=== PATIENT | male | born 1965 | race Caucasian/White ===

== ENCOUNTER 2018-10-04 20:09 | Emergency (ER) | payer MEDICAID ==
[~2018-10-04] VITALS: Ht 180.3 cm; Wt 80.9 kg
[~2018-10-04 20:09] MED LIST: AMLODIPINE; LISINOPRIL; SIMVASTATIN; VICODIN
[2018-10-04 20:27] VITALS: BP 168/95
[2018-10-04] MEDS ORDERED: KETOROLAC TROMETHAMINE 15 MG/ML VIAL ONE (20:50)
[2018-10-04] MEDS ORDERED: DIAZEPAM 5 MG TABLET ONE (20:51)
[2018-10-04] MEDS ORDERED: KETOROLAC TROMETHAMINE INJ 30 MG/ML VIAL IM ONE (21:00)
[2018-10-04] MEDS ORDERED: DIAZEPAM 10 MG TABLET PO ONE (21:00)
== END 2018-10-04 20:59 | disposition home or self-care (01) ==
LOC: ER 20:12
DX: M25.511 Pain in right shoulder (principal); M79.662 Pain in left lower leg; G89.29 Other chronic pain; F17.200 Nicotine dependence, unspecified, uncomplicated; Z79.899 Other long term (current) drug therapy; W18.39XA Other fall on same level, initial encounter; Y93.01 Activity, walking, marching and hiking; Y92.89 Other specified places as the place of occurrence of the external cause; Y99.8 Other external cause status
CPT/HCPCS: 96372; 99283; J1885

== ENCOUNTER 2020-10-05 13:34 | Emergency (ER) | payer MEDICAID ==
[~2020-10-05] VITALS: Ht 180.3 cm; Wt 89.8 kg
[2020-10-05 13:51] VITALS: BP 186/103
[2020-10-05] MEDS ORDERED: LIDOCAINE 1%-EPI 1:100,000 20 ML VIAL ONE (14:15)
[2020-10-05] MEDS ORDERED: NAPR-1164 PO (15:41)
[2020-10-05] MEDS ORDERED: CEPH500C2 PO (15:41)
[2020-10-05] MEDS ORDERED: TRAM50TA2 PO (15:41)
--- NOTE | 2020-10-05 15:45 | NUR ---
DR. HERNANDEZ I&D'D LT ELBOW, PT RODNEY WELL. APPLIED ISABELA BANDAGE ON LT ELBOW.
--- NOTE | 2020-10-05 16:14 | NUR ---
Patient discharged to home in stable condition. Written and verbal after care instructions given. Patient verbalizes understanding of instruction.
== END 2020-10-05 16:15 | disposition home or self-care (01) ==
LOC: ER 13:39
DX: S62.522A Displaced fracture of distal phalanx of left thumb, initial encounter for closed fracture (principal); M70.22 Olecranon bursitis, left elbow; F10.10 Alcohol abuse, uncomplicated; Y90.9 Presence of alcohol in blood, level not specified; Z60.2 Problems related to living alone; Z79.899 Other long term (current) drug therapy; W01.0XXA Fall on same level from slipping, tripping and stumbling without subsequent striking against object, initial encounter; Y93.89 Activity, other specified; Y92.89 Other specified places as the place of occurrence of the external cause; Y99.8 Other external cause status
CPT/HCPCS: 20605; 29130; 36415; 73070; 73140; 87070; 89051; 99284; A6403; A6407; J3490